=== PATIENT | male | born 1990 | race Caucasian/White ===

== ENCOUNTER 2018-08-06 10:25 | Inpatient (IN) | payer OTHER ==
[2018-08-06 10:53] VITALS: BMI 21.1
--- NOTE | 2018-08-06 11:55 | HP ---
COWS - Scale Resting Pulse: 0= [place] 80 or Below Sweatin= Chills/Flushing Restless Observation: 3= Extraneous Movement Pupil Size: 2= Moderately Dilated Bone or Joint Aches: 2= Severe Diffuse Aches Runny Nose/ Eye Tearin= Runny Nose/Eyes GI Upset > 30mins: 3= Vomiting/Diarrhea Tremor Observation: 2= Slight Tremor Visible Yawning Observation: 2= >3x During Session Anxiety or Irritability: 2=Irritable/Anxious Goose Flesh Skin: 0=Smooth Skin COWS Score: 19 CIWA Score - Admission Criteria OASAS Guidelines: Admission for Medically Managed Detox: Requires at least one of the followin. CIWA greater than 12 2. Seizures within the past 24 hours 3. Delirium tremens within the past 24 hours 4. Hallucinations within the past 24 hours 5. Acute intervention needed for co occurring medical disorder 6. Acute intervention needed for co occurring psychiatric disorder 7. Severe withdrawal that cannot be handled at a lower level of care (continued vomiting, continued diarrhea, abnormal vital signs) requiring intravenous medication and/or fluids 8. Admission ROS S - HPI Chief Complaint: i need help to stop using heroin,cocaine Allergies/Adverse Reactions: Allergies Allergy/AdvReac Type Severity Reaction Status Date / Time No Known Allergies Allergy Verified 08/06/18 11:51 History of Present Illness: this 27 years old male with heroin and cocaine depenence,seeking detox, withdrawal symptom,last detox 2018 [facility] this is the first detox admission asthma on albuterol inhaler and nebulizer nicotine dependence 6 cigarette weight loss longest sobriety 2 years relocate after detox Exam Limitations: No Limitations - Ebola screening Have you traveled outside of the country in the last 21 days: No (N) Have you had contact with anyone from an Ebola affected area: No Have you been sick,other than usual withdrawal symptoms: No Do you have a fever: No - Review of Systems Constitutional: Chills, Loss of Appetite, Malaise, Night Sweats, Changes in sleep, Weakness, Unintentional Wgt. Loss EENT: reports: Tearing, Nose Congestion Respiratory: reports: No Symptoms reported, Other (asthma) Cardiac: reports: No Symptoms Reported GI: reports: Diarrhea, Nausea, Vomiting, Abdominal cramping : reports: No Symptoms Reported Musculoskeletal: reports: Back Pain, Joint Pain, Muscle Pain, Joint Stiffness Neuro: reports: Headache, Tremors Hematology: reports: No Symptoms Reported Psychiatric: reports: No Sypmtoms Reported, Judgement Intact, Mood/Affect Appropiate, Orientated x3, other Other Systems: Reviewed and Negative Patient History - Patient Medical History Hx Anemia: No Hx Asthma: Yes (on albutrol inhaler and nebulizer) Hx Chronic Obstructive Pulmonary Disease (COPD): No Hx Cancer: No Hx Cardiac Disorders: No Hx Congestive Heart Failure: No Hx Hypertension: No Hx Hypercholesterolemia: No Hx Pacemaker: No HX Cerebrovascular Accident: No Hx Seizures: No Hx Dementia: No Hx Diabetes: No Hx Gastrointestinal Disorders: No Hx Liver Disease: No Hx Genitourinary Disorders: No Hx Sexually Transmitted Disorders: No Hx Renal Disease (ESRD): No Hx Thyroid Disease: No Hx Human Immunodeficiency Virus (HIV): No (last 06/02 negative) Hx Hepatitis C: No Hx Depression: No Hx Suicide Attempt: No Hx Bipolar Disorder: No Hx Schizophrenia: No Other Medical History: no suicidal,no homicidal - Patient Surgical History Past Surgical History: No - PPD History Previous Implant?: Yes Documented Results: Negative w/o proof Implanted On Prior [facility] Admission?: No PPD to be Administered?: Yes - Smoking Cessation Smoking history: Current every day smoker Have you smoked in the past 12 months: Yes Aproximately how many cigarettes per day: 0 Hx Chewing Tobacco Use: No Initiated information on smoking cessation: Yes 'Breaking Loose' booklet given: 08/06/18 - Substance & Tx. History Hx Alcohol Use: No Hx Substance Use: Yes Substance Use Type: Cocaine, Heroin Hx Substance Use Treatment: No - Substances Abused Heroin Route: Injection Frequency: Daily Amount used: 30 BAGS Age of first use: 22 Date of Last Use: 08/05/18 Cocaine Route: Injection Frequency: 1-2 times per week Amount used: $20 Age of first use: 22 Date of Last Use: 08/04/18 Family Disease History - Family Disease History Family History: Denies Admission Physical Exam S - Vital Signs Vital Signs: Vital Signs - 24 hr 08/06/18 10:52 Temperature 98.2 F Pulse Rate 80 Respiratory 18 Rate Blood Pressure 110/75 - Physical General Appearance: Yes: Moderate Distress, Tremorous, Irritable, Sweating, Anxious HEENTM: Yes: Normal ENT Inspection, MARY, Pharynx Normal Respiratory: Yes: No Respiratory Distress, Wheezing Neck: Yes: Within Normal Limits, Supple, Trachea in good position Breast: Yes: Within Normal Limits Cardiology: Yes: Within Normal Limits, Regular Rhythm, Regular Rate, S1, S2 Abdominal: Yes: Within Normal Limits, Normal Bowel Sounds, Non Tender, Flat, Soft Genitourinary: Yes: Within Normal Limits Back: Yes: Muscle Spasm Musculoskeletal: Yes: Back pain, Joint Stiffness, Muscle Pain Extremities: Yes: Normal Range of Motion, Tremors Neurological: Yes: sorter packer II-XII NML intact, Fully Oriented, Alert, Motor Strength 5/5 Integumentary: Yes: Dry, Track Desai Lymphatic: Yes: Within Normal Limits - Diagnostic (1) Opioid dependence with withdrawal Current Visit: Yes Status: Acute (2) Cocaine dependence Current Visit: Yes Status: Acute (3) Nicotine dependence Current Visit: Yes Status: Acute (4) Asthma Current Visit: Yes Status: Acute (5) Weight loss Current Visit: Yes Status: Acute Cleared for Admission [facility] - Detox or Rehab [facility] Level of Care: Medically Managed Detox Regimen/Protocol: Methadone [facility] Breath Alcohol Content Breath Alcohol Content: 0 Urine Drug Screen - Results Drug Screen Negative: No Urine Drug Screen Results: MUMTAZ-Cocaine, OPI-Opiates, FEN-Fentanyl Inpatient Rehab Admission - Rehab Decision to Admit Inpatient rehab admission?: No
[2018-08-06] MEDS ORDERED: BISMUTH SUBSALICYLATE 262 MG/15 ML BTL PO PRN (12:07)
[2018-08-06] MEDS ORDERED: hydrOXYzine PAMOATE 25 MG CAPSULE (FP) PO PRN (12:07)
[2018-08-06] MEDS ORDERED: MENTHOL/PHENOL 1 EACH UD MM PRN (12:07)
[2018-08-06] MEDS ORDERED: MAG HYDROX/AL HYDROX/SIMETH 30 ML UNIT-DOSE CUP PO PRN (12:07)
[2018-08-06] MEDS ORDERED: cloNIDine HCL 0.1 MG TABLET PO PRN (12:07)
[2018-08-06] MEDS ORDERED: MAGNESIUM CITRATE 300 ML BOTTLE PO PRN (12:07)
[2018-08-06] MEDS ORDERED: ACETAMINOPHEN 325 MG TABLET (FP) PO PRN ×2 (12:07)
[2018-08-06] MEDS ORDERED: IBUPROFEN 400 MG TABLET (FP) PO PRN (12:07)
[2018-08-06] MEDS ORDERED: MAGNESIUM HYDROX 2400MG/30ML ORAL SUSPENSION 30 ML CUP PO PRN (12:07)
[2018-08-06] MEDS ORDERED: METHADONE HCL 10 MG TABLET (FOR DETOX USE ONLY) PO ONE ×2 (12:20→23:00)
[2018-08-06] MEDS: METHADONE HCL 10 MG TABLET (FOR DETOX USE ONLY) PO ONE (13:03)
[2018-08-06] MEDS: diazePAM 5 MG TABLET PO PRN ×2 (13:03→19:53)
[2018-08-06] MEDS ORDERED: ALBUTEROL SO4 0.083% IH SOL 2.5 MG/3 ML VIAL.NEB. NEB ONE (17:10)
[2018-08-06] MEDS: ALBUTEROL SO4 0.083% IH SOL 2.5 MG/3 ML VIAL.NEB. NEB PRN (17:28)
[2018-08-06] MEDS: NICOTINE POLACRILEX 2 MG GUM BUC PRN (17:30)
[2018-08-06] MEDS: THIAMINE HCL 100 MG TABLET (FP) PO SCH (22:12)
[2018-08-06] MEDS: MELATONIN 5 MG TABLETS PO PRN (22:13)
[2018-08-07] MEDS: ALBUTEROL SO4 0.083% IH SOL 2.5 MG/3 ML VIAL.NEB. NEB PRN (02:43)
[2018-08-07 05:15] LABS: URINE APPEARANCE CLEAR; URINE BILIRUBIN NEGATIVE (NEGATIVE); URINE COLOR YELLOW; URINE GLUCOSE (UA) NEGATIVE (NEGATIVE); URINE KETONE NEGATIVE (NEGATIVE); URINE LEUK ESTERASE NEGATIVE (NEGATIVE); URINE NITRITE NEGATIVE (NEGATIVE); URINE PROTEIN NEGATIVE (NEGATIVE); URINE UROBILINOGEN 0.2 mg/dL (0.2-1.0)
--- NOTE | 2018-08-07 09:30 | EKG ---
Test Reason : Blood Pressure : / mmHG Vent. Rate : 069 BPM Atrial Rate : 069 BPM P-R Int : 126 ms QRS Dur : 092 ms QT Int : 394 ms P-R-T Axes : 059 070 054 degrees QTc Int : 422 ms NORMAL SINUS RHYTHM NORMAL ECG NO PREVIOUS ECGS AVAILABLE Confirmed by MYLENE LORA MD ([id number]) on 08/07/2018 9:29:38 AM Referred By: Confirmed By:MYLENE LORA MD
[2018-08-07] MEDS ORDERED: METHADONE HCL 10 MG TABLET (FOR DETOX USE ONLY) PO ONE (10:00)
[2018-08-07] MEDS: PRENATAL VITAMINS W/ FOLIC ACID TABLET (FP) PO SCH (10:15)
[2018-08-07] MEDS: diazePAM 5 MG TABLET PO PRN ×3 (10:17→22:27)
[2018-08-07] MEDS: METHOCARBAMOL 500 MG TABLET PO PRN (10:17)
[2018-08-07] MEDS: NICOTINE POLACRILEX 2 MG GUM BUC PRN ×3 (10:19→22:30)
--- NOTE | 2018-08-07 11:51 | PN ---
S COWS - Scale Resting Pulse: 0= [place] 80 or Below Sweatin= Chills/Flushing Restless Observation: 1= Difficult to Sit Still Pupil Size: 1= Pupils >than Normal Bone or Joint Aches: 1= Mild Discomfort Runny Nose/ Eye Tearin= Nasal Congestion GI Upset > 30mins: 1= Stomach Cramp Tremor Observation of Outstretched Hands: 2= Slight Tremor Visible Yawning Observation: 1= 1-2x During Session Anxiety or Irritability: 2=Irritable/Anxious Goose Flesh Skin: 3=Piloerection COWS Score: 14 BHS Progress Note (SOAP) Subjective: muscle cramping feeling better today mild tremor Objective: 08/07/18 11:50 Vital Signs Temperature 98.4 F 08/07/18 09:32 Pulse Rate 77 08/07/18 09:32 Respiratory Rate 18 08/07/18 09:32 Blood Pressure 126/78 08/07/18 09:32 O2 Sat by Pulse Oximetry (%) Laboratory Last Values Urine Color Yellow 08/07/18 00:05 Urine Appearance Clear 08/07/18 00:05 Urine pH 7.0 (5.0-8.0) 08/07/18 00:05 Ur Specific [place] 1.015 (1.010-1.035) 08/07/18 00:05 Urine Protein Negative (NEGATIVE) 08/07/18 00:05 Urine Glucose (UA) Negative (NEGATIVE) 08/07/18 00:05 Urine Ketones Negative (NEGATIVE) 08/07/18 00:05 Urine Blood Negative (NEGATIVE) 08/07/18 00:05 Urine Nitrite Negative (NEGATIVE) 08/07/18 00:05 Urine Bilirubin Negative (NEGATIVE) 08/07/18 00:05 Urine Urobilinogen 0.2 mg/dL (0.2-1.0) 08/07/18 00:05 Ur Leukocyte Esterase Negative (NEGATIVE) 08/07/18 00:05 lab pending 08/07/18 11:51 Assessment: 08/07/18 11:51 withdrawal sx Plan: continue detox
[2018-08-07 12:20] LABS: HEMATOCRIT 44.6 % (35.4-49); HEMOGLOBIN 15.3 GM/dL (11.7-16.9); MCH 31.2 pg (25.7-33.7); MCHC 34.4 g/dl (32.0-35.9); MEAN CELL VOLUME 90.9 fl (80-96); MEAN PLT VOLUME 8.3 fl (7.5-11.1); PLATELET COUNT 306 K/MM3 (134-434); RDW 13.6 % (11.9-15.9); WHITE BLOOD COUNT 7.5 K/mm3 (4.0-10.0)
[2018-08-07 12:29] LABS: SICKLE CELL SCREEN NEGATIVE (NEGATIVE)
[2018-08-07 12:34] LABS: ALBUMIN 4.1 g/dl (3.4-5.0); ALK PHOS 81 U/L (45-117); ANION GAP 9 MMOL/L (8-16); BILIRUBIN,TOTAL 0.3 mg/dL (0.2-1); BLOOD UREA NITROGEN 7 mg/dL (7-18); CALCIUM 9.5 mg/dL (8.5-10.1); CHLORIDE 101 mmol/L (98-107); CO2 28 mmol/L (21-32); CREATININE 0.9 mg/dL (0.55-1.3); GLUCOSE,RANDOM 84 mg/dL (74-106); POTASSIUM 3.9 mmol/L (3.5-5.1); SGOT/AST 25 U/L (15-37); SGPT/ALT 29 U/L (13-61); SODIUM 137 mmol/L (136-145); TOT PROT 7.6 g/dl (6.4-8.2)
[2018-08-07] MEDS: THIAMINE HCL 100 MG TABLET (FP) PO SCH (22:25)
[2018-08-07] MEDS: MELATONIN 5 MG TABLETS PO PRN (22:27)
[2018-08-08] MEDS: ALBUTEROL SO4 0.083% IH SOL 2.5 MG/3 ML VIAL.NEB. NEB PRN (02:09)
[2018-08-08] MEDS: METHOCARBAMOL 500 MG TABLET PO PRN ×2 (02:19→22:47)
[2018-08-08] MEDS ORDERED: METHADONE HCL 10 MG TABLET (FOR DETOX USE ONLY) PO ONE (10:00)
[2018-08-08] MEDS: PRENATAL VITAMINS W/ FOLIC ACID TABLET (FP) PO SCH (10:09)
[2018-08-08] MEDS: diazePAM 5 MG TABLET PO PRN (10:11)
[2018-08-08] MEDS: NICOTINE POLACRILEX 2 MG GUM BUC PRN ×3 (10:12→22:48)
[2018-08-08] MEDS ORDERED: cloNIDine HCL 0.1 MG TABLET PO PRN (12:29)
--- NOTE | 2018-08-08 12:29 | PN ---
BHS COWS - Scale Resting Pulse: 1= [place] 81-100 Sweatin= Chills/Flushing Restless Observation: 1= Difficult to Sit Still Pupil Size: 1= Pupils >than Normal Bone or Joint Aches: 1= Mild Discomfort Runny Nose/ Eye Tearin= Nasal Congestion GI Upset > 30mins: 1= Stomach Cramp Tremor Observation of Outstretched Hands: 1= Tremor [place], Not Seen Yawning Observation: 1= 1-2x During Session Anxiety or Irritability: 1=Feels Anxious/Irritable Goose Flesh Skin: 0=Smooth Skin COWS Score: 10 BHS Progress Note (SOAP) Subjective: pt states she has with drawal Sx- here for methadone detox today is day #3 O: Vital Signs - 24 hr 08/07/18 08/07/18 08/07/18 13:26 17:24 21:39 Temperature 97.9 F 98.1 F 97.3 F L Pulse Rate 93 H 76 77 Respiratory 18 17 17 Rate Blood Pressure 126/86 99/64 94/56 L 08/08/18 08/08/18 08/08/18 00:30 03:30 06:53 Temperature 96.8 F L Pulse Rate 60 Respiratory 18 18 18 Rate Blood Pressure 89/43 L 08/08/18 09:25 Temperature 97.2 F L Pulse Rate 78 Respiratory 18 Rate Blood Pressure 102/65 Laboratory Tests 08/07/18 08/07/18 08/07/18 00:05 06:00 06:00 WBC 7.5 RBC 4.90 Hgb 15.3 Hct 44.6 MCV 90.9 MCH 31.2 MCHC 34.4 RDW 13.6 Plt Count 306 MPV 8.3 Sickle Cell Screen Negative Sodium 137 Potassium 3.9 Chloride 101 Carbon Dioxide 28 Anion Gap 9 BUN 7 Creatinine 0.9 Creat Clearance w eGFR 101.22 Random Glucose 84 Calcium 9.5 Total Bilirubin 0.3 AST 25 ALT 29 Alkaline Phosphatase 81 Total Protein 7.6 Albumin 4.1 Urine Color Yellow Urine Appearance Clear Urine pH 7.0 Ur Specific [place] 1.015 Urine Protein Negative Urine Glucose (UA) Negative Urine Ketones Negative Urine Blood Negative Urine Nitrite Negative Urine Bilirubin Negative Urine Urobilinogen 0.2 Ur Leukocyte Esterase Negative RPR Titer 08/07/18 06:00 WBC RBC Hgb Hct MCV MCH MCHC RDW Plt Count MPV Sickle Cell Screen Sodium Potassium Chloride Carbon Dioxide Anion Gap BUN Creatinine Creat Clearance w eGFR Random Glucose Calcium Total Bilirubin AST ALT Alkaline Phosphatase Total Protein Albumin Urine Color Urine Appearance Urine pH Ur Specific [place] Urine Protein Urine Glucose (UA) Urine Ketones Urine Blood Urine Nitrite Urine Bilirubin Urine Urobilinogen Ur Leukocyte Esterase RPR Titer Nonreactive a/p: methadone based heroin detox protocol clonidine/vitaril prn
[2018-08-08] MEDS: MELATONIN 5 MG TABLETS PO PRN (22:45)
[2018-08-08] MEDS: THIAMINE HCL 100 MG TABLET (FP) PO SCH (22:45)
--- NOTE | 2018-08-09 09:12 | DS ---
[facility] Detox Discharge Summary Admission Date: 08/06/18 Discharge Date: 08/09/18 - History Present History: Opioid Dependence Additional Comments: 27 years old male admitted on 08/06/18 for opiate withdrawal stabilization feeling better today preferring to go to [place] with his family for support alert no acute distress denies suicidal ideation will follow up aftercare in [place] Pertinent Past History: bulk picker narcan kit from pharmacy bring in medication list and lab report to aftercare appointment - Physical Exam Results Vital Signs: Vital Signs Temperature 97.4 F L 08/09/18 06:42 Pulse Rate 69 08/09/18 06:42 Respiratory Rate 18 08/09/18 06:42 Blood Pressure 96/56 L 08/09/18 06:42 O2 Sat by Pulse Oximetry (%) Pertinent Admission Physical Exam Findings: opiate withdrawal sx Laboratory Last Values WBC 7.5 K/mm3 (4.0-10.0) 08/07/18 06:00 RBC 4.90 M/mm3 (4.00-5.60) 08/07/18 06:00 Hgb 15.3 GM/dL (11.7-16.9) 08/07/18 06:00 Hct 44.6 % (35.4-49) 08/07/18 06:00 MCV 90.9 fl (80-96) 08/07/18 06:00 MCH 31.2 pg (25.7-33.7) 08/07/18 06:00 MCHC 34.4 g/dl (32.0-35.9) 08/07/18 06:00 RDW 13.6 % (11.9-15.9) 08/07/18 06:00 Plt Count 306 K/MM3 (134-434) 08/07/18 06:00 MPV 8.3 fl (7.5-11.1) 08/07/18 06:00 Sickle Cell Screen Negative (NEGATIVE) 08/07/18 06:00 Sodium 137 mmol/L (136-145) 08/07/18 06:00 Potassium 3.9 mmol/L (3.5-5.1) 08/07/18 06:00 Chloride 101 mmol/L (98-107) 08/07/18 06:00 Carbon Dioxide 28 mmol/L (21-32) 08/07/18 06:00 Anion Gap 9 MMOL/L (8-16) 08/07/18 06:00 BUN 7 mg/dL (7-18) 08/07/18 06:00 Creatinine 0.9 mg/dL (0.55-1.3) 08/07/18 06:00 Creat Clearance w eGFR 101.22 (>60) 08/07/18 06:00 Random Glucose 84 mg/dL (74-106) 08/07/18 06:00 Calcium 9.5 mg/dL (8.5-10.1) 08/07/18 06:00 Total Bilirubin 0.3 mg/dL (0.2-1) 08/07/18 06:00 AST 25 U/L (15-37) 08/07/18 06:00 ALT 29 U/L (13-61) 08/07/18 06:00 Alkaline Phosphatase 81 U/L (45-117) 08/07/18 06:00 Total Protein 7.6 g/dl (6.4-8.2) 08/07/18 06:00 Albumin 4.1 g/dl (3.4-5.0) 08/07/18 06:00 Urine Color Yellow 08/07/18 00:05 Urine Appearance Clear 08/07/18 00:05 Urine pH 7.0 (5.0-8.0) 08/07/18 00:05 Ur Specific [place] 1.015 (1.010-1.035) 08/07/18 00:05 Urine Protein Negative (NEGATIVE) 08/07/18 00:05 Urine Glucose (UA) Negative (NEGATIVE) 08/07/18 00:05 Urine Ketones Negative (NEGATIVE) 08/07/18 00:05 Urine Blood Negative (NEGATIVE) 08/07/18 00:05 Urine Nitrite Negative (NEGATIVE) 08/07/18 00:05 Urine Bilirubin Negative (NEGATIVE) 08/07/18 00:05 Urine Urobilinogen 0.2 mg/dL (0.2-1.0) 08/07/18 00:05 Ur Leukocyte Esterase Negative (NEGATIVE) 08/07/18 00:05 RPR Titer Nonreactive (NONREACTIVE) 08/07/18 06:00 lab noted - Treatment Hospital Course: Detox Protocol Followed, Detoxed Safely, Responded well, Discharged Condition Good, Rehab Referral Accepted Patient has Accepted a Rehab Referral to: [facility] group - Medication Discharge Medications: Ambulatory Orders Naloxone HCl [Narcan] 4 mg NS ASDIR PRN #1 spray 08/09/18 - Diagnosis (1) Asthma Current Visit: Yes Status: Chronic Qualifiers: Asthma severity: mild Asthma persistence: intermittent Asthma complication type: with status asthmaticus Qualified Code(s): J45.22 - Mild intermittent asthma with status asthmaticus (2) Nicotine dependence Current Visit: Yes Status: Acute Qualifiers: Nicotine product type: cigarettes Substance use status: in withdrawal Qualified Code(s): F17.213 - Nicotine dependence, cigarettes, with withdrawal (3) Opioid dependence with withdrawal Current Visit: Yes Status: Acute (4) Weight loss Current Visit: Yes Status: Acute - AMA Did Patient Leave Against Medical Advice: No
[2018-08-09] MEDS: METHADONE HCL 10 MG TABLET (FOR DETOX USE ONLY) PO ONE (10:01)
[2018-08-09] MEDS: PRENATAL VITAMINS W/ FOLIC ACID TABLET (FP) PO SCH (10:01)
[2018-08-09 10:11] VITALS: BP 107/65; PULSE 81; TEMP 98.4
[2018-08-10] MEDS ORDERED: METHADONE HCL 5 MG TABLET (FOR DETOX USE ONLY) PO ONE (06:00)
== END 2018-08-09 10:23 | disposition home or self-care (01) | DRG 773 ==
LOC: YASAS 10:25 → Y3N 12:16
PROVIDERS: ADMIT Surgery; ATTEND Surgery
PROC: HZ2ZZZZ Detoxification Services for Substance Abuse Treatment (ICD-10-PCS; principal; 2018-08-09)
DX: F11.23 Opioid dependence with withdrawal (principal); F14.20 Cocaine dependence, uncomplicated; F17.213 Nicotine dependence, cigarettes, with withdrawal; J45.22 Mild intermittent asthma with status asthmaticus; R63.4 Abnormal weight loss
CPT/HCPCS: 36415; 80053; 81003; 85027; 85660; 86593; 93005; 93010; 94640; J0735

== ENCOUNTER 2018-12-02 11:23 | Inpatient (IN) | payer OTHER ==
--- NOTE | 2018-12-02 13:40 | HP ---
COWS - Scale Resting Pulse: 1= [place] 81-100 Sweatin=Flushed/Facial Moisture Restless Observation: 1= Difficult to Sit Still Pupil Size: 1= Pupils >than Normal Bone or Joint Aches: 1= Mild Discomfort Runny Nose/ Eye Tearin= Nasal Congestion GI Upset > 30mins: 2= Nausea/Diarrhea Tremor Observation: 2= Slight Tremor Visible Yawning Observation: 0= None Anxiety or Irritability: 2=Irritable/Anxious Goose Flesh Skin: 0=Smooth Skin COWS Score: 13 CIWA Score - Admission Criteria OASAS Guidelines: Admission for Medically Managed Detox: Requires at least one of the followin. CIWA greater than 12 2. Seizures within the past 24 hours 3. Delirium tremens within the past 24 hours 4. Hallucinations within the past 24 hours 5. Acute intervention needed for co occurring medical disorder 6. Acute intervention needed for co occurring psychiatric disorder 7. Severe withdrawal that cannot be handled at a lower level of care (continued vomiting, continued diarrhea, abnormal vital signs) requiring intravenous medication and/or fluids 8. Admission ROS [facility] Chief Complaint: IM TIRED Allergies/Adverse Reactions: Allergies Allergy/AdvReac Type Severity Reaction Status Date / Time No Known Allergies Allergy Verified 12/02/18 12:06 History of Present Illness: BEGAN USING OPIATES AGE 20 PREVIOUSLY NO SUBSTANCES RECRATIONALLY BEGAN USING ORAL OPIATES 6-7 MOS BECAME DEPENDENT AND BEGAN USING HEROIN USING IV NO ABCESSES + MISS COCAINE OCASSIONAL - Ebola screening Have you traveled outside of the country in the last 21 days: No (N) Have you had contact with anyone from an Ebola affected area: No Do you have a fever: No - Review of Systems Constitutional: Loss of Appetite, Changes in sleep, Unintentional Wgt. Loss EENT: reports: No Symptoms Reported Respiratory: reports: Shortness of Breath Cardiac: reports: No Symptoms Reported GI: reports: Nausea, Vomiting, Indigestion, Abdominal cramping : reports: No Symptoms Reported Musculoskeletal: reports: No Symptoms Reported Integumentary: reports: No Symptoms Reported Neuro: reports: No Symptoms reported Endocrine: reports: No Symptoms Reported Hematology: reports: No Symptoms Reported Psychiatric: reports: Anxious Patient History - Patient Medical History Hx Anemia: No Hx Asthma: Yes (on albutrol inhaler and nebulizer) Hx Chronic Obstructive Pulmonary Disease (COPD): No Hx Cancer: No Hx Cardiac Disorders: No Hx Congestive Heart Failure: No Hx Hypertension: No Hx Hypercholesterolemia: No Hx Pacemaker: No HX Cerebrovascular Accident: No Hx Seizures: No Hx Dementia: No Hx Diabetes: No Hx Gastrointestinal Disorders: No Hx Liver Disease: No Hx Genitourinary Disorders: No Hx Sexually Transmitted Disorders: No Hx Renal Disease (ESRD): No Hx Thyroid Disease: No Hx Human Immunodeficiency Virus (HIV): No (last 06/02 negative) Hx Hepatitis C: No Hx Depression: No Hx Suicide Attempt: No Hx Bipolar Disorder: No Hx Schizophrenia: No - Patient Surgical History Past Surgical History: No - PPD History Date: 08/08/18 - Smoking Cessation Smoking history: Current every day smoker Have you smoked in the past 12 months: Yes Aproximately how many cigarettes per day: 6 Hx Chewing Tobacco Use: No Initiated information on smoking cessation: Yes 'Breaking Loose' booklet given: 12/02/18 - Substances abused Heroin Substance route: Injection Frequency: Daily Amount used: 7bags daily Age of first use: 20 Date of last use: 12/02/18 Family Disease History - Family Disease History Family Disease History: Other: Father (etoh ) Admission Physical Exam BHS - Vital Signs Vital Signs: Vital Signs - 24 hr 12/02/18 12/02/18 12:07 13:04 Temperature 99.4 F 99.4 F Pulse Rate 88 88 Respiratory 18 18 Rate Blood Pressure 131/88 131/88 - Physical General Appearance: Yes: Mild Distress, Sweating, Anxious HEENTM: Yes: EOMI, Normocephalic, MARY Respiratory: Yes: Chest Non-Tender, Lungs Clear Neck: Yes: No masses,lesions,Nodules Breast: Yes: Breast Exam Deferred Cardiology: Yes: Within Normal Limits, Regular Rate, S1, S2 Abdominal: Yes: Normal Bowel Sounds, Non Tender Back: Yes: Within Normal Limits, Normal Inspection Musculoskeletal: Yes: Within Normal Limits, full range of Motion Extremities: Yes: Within Normal Limits Neurological: Yes: Within Normal Limits, vendor representatives II-XII NML intact, Fully Oriented, Alert, Motor Strength 5/5, Normal Mood/Affect Integumentary: Yes: Track Desai (bl ac) - Diagnostic (1) Nicotine dependence Current Visit: Yes Status: Acute Qualifiers: Nicotine product type: cigarettes Substance use status: in withdrawal Qualified Code(s): F17.213 - Nicotine dependence, cigarettes, with withdrawal (2) Opioid dependence with withdrawal Current Visit: Yes Status: Acute (3) Weight loss Current Visit: Yes Status: Acute (4) Asthma Current Visit: No Status: Chronic Qualifiers: Asthma severity: mild Asthma persistence: intermittent Asthma complication type: uncomplicated Qualified Code(s): J45.20 - Mild intermittent asthma, uncomplicated Breathalyzer - Breathalyzer Breathalyzer: 0 Urine Drug Screen - Test Device Lot number: [id number] Expiration date: 09/11/20 - Control Is test valid?: Yes - Results Drug screen NEGATIVE: No Urine drug screen results: THC-Marijuana, MUMTAZ-Cocaine, FEN-Fentanyl, MOP-Opiates , OXY-Oxycodone Inpatient Rehab Admission - Rehab Decision to Admit Inpatient rehab admission?: No
[2018-12-02] MEDS ORDERED: METHOCARBAMOL 500 MG TABLET PO PRN (13:46)
[2018-12-02] MEDS ORDERED: IBUPROFEN 400 MG TABLET (FP) PO PRN (13:46)
[2018-12-02] MEDS ORDERED: MAGNESIUM HYDROX 2400MG/30ML ORAL SUSPENSION 30 ML CUP PO PRN (13:46)
[2018-12-02] MEDS ORDERED: BISMUTH SUBSALICYLATE 524 MG/30 ML UD PO PRN (13:46)
[2018-12-02] MEDS ORDERED: ACETAMINOPHEN 325 MG TABLET (FP) PO PRN ×2 (13:46)
[2018-12-02] MEDS ORDERED: MENTHOL/PHENOL 1 EACH UD MM PRN (13:46)
[2018-12-02] MEDS ORDERED: MAGNESIUM CITRATE 300 ML BOTTLE PO PRN (13:46)
[2018-12-02] MEDS ORDERED: METHADONE HCL 10 MG TABLET (FOR DETOX USE ONLY) PO ONE (13:46)
[2018-12-02] MEDS ORDERED: ALBUTEROL SO4 8 GM HFA INHALER IH PRN (13:49)
[2018-12-02] MEDS: NICOTINE POLACRILEX 2 MG GUM BUC PRN ×2 (15:07→17:42)
[2018-12-02] MEDS: NICOTINE 14 MG/24 HOURS TOPICAL PATCH TD SCH (15:07)
[2018-12-02] MEDS: hydrOXYzine PAMOATE 25 MG CAPSULE (FP) PO PRN (17:45)
[2018-12-02] MEDS: cloNIDine HCL 0.1 MG TABLET PO PRN (22:07)
[2018-12-02] MEDS: THIAMINE HCL 100 MG TABLET (FP) PO SCH (22:07)
[2018-12-02] MEDS: MELATONIN 5 MG TABLETS PO PRN (22:08)
[2018-12-03] MEDS ORDERED: METHADONE (DETOX) 20 MG, METHADONE (DETOX) 5 MG PO ONE (10:00)
[2018-12-03] MEDS ORDERED: METHADONE HCL 10 MG TABLET (FOR DETOX USE ONLY) ONE (10:07)
[2018-12-03] MEDS ORDERED: METHADONE HCL 5 MG TABLET (FOR DETOX USE ONLY) ONE (10:07)
[2018-12-03] MEDS: NICOTINE POLACRILEX 2 MG GUM BUC PRN ×3 (10:29→18:22)
[2018-12-03] MEDS: PRENATAL VITAMINS W/ FOLIC ACID TABLET (FP) PO SCH (10:29)
[2018-12-03] MEDS: NICOTINE 14 MG/24 HOURS TOPICAL PATCH TD SCH (10:29)
[2018-12-03] MEDS: hydrOXYzine PAMOATE 25 MG CAPSULE (FP) PO PRN (10:30)
--- NOTE | 2018-12-03 10:47 | PN ---
BHS COWS - Scale Resting Pulse: 1= [place] 81-100 Sweatin= Chills/Flushing Restless Observation: 0= Sits Still Pupil Size: 1= Pupils >than Normal Bone or Joint Aches: 1= Mild Discomfort Runny Nose/ Eye Tearin= None GI Upset > 30mins: 1= Stomach Cramp Tremor Observation of Outstretched Hands: 2= Slight Tremor Visible Yawning Observation: 0= None Anxiety or Irritability: 2=Irritable/Anxious Goose Flesh Skin: 3=Piloerection COWS Score: 12 BHS Progress Note (SOAP) Subjective: sweat anxiety body aches 28 years old male admitted on 12/02/18 for acute opiate withdrawal sx management doing well with methadone detox regimen resting on bed feeling tired tolerate food and fluid well last [place]' admission 07/2018 discuss medication assisted treatment program Objective: 12/03/18 10:48 Vital Signs Temperature 97.4 F L 12/03/18 10:05 Pulse Rate 82 12/03/18 10:05 Respiratory Rate 18 12/03/18 10:05 Blood Pressure 110/73 12/03/18 10:05 O2 Sat by Pulse Oximetry (%) 12/03/18 10:48 lab pending Assessment: 12/03/18 10:48 opiate withdrawal sx Plan: continue opiate detox
[2018-12-03] MEDS: MAG HYDROX/AL HYDROX/SIMETH 30 ML UNIT-DOSE CUP PO PRN (11:16)
[2018-12-03 12:13] LABS: HEMATOCRIT 44.3 % (35.4-49); HEMOGLOBIN 14.9 GM/dL (11.7-16.9); MCHC 33.6 g/dl (32.0-35.9); MEAN CELL VOLUME 92.2 fl (80-96); MEAN PLT VOLUME 7.7 fl (7.5-11.1); PLATELET COUNT 366 K/MM3 (134-434); RBC 4.81 M/mm3 (4.00-5.60); RDW 14.2 % (11.9-15.9); WHITE BLOOD COUNT 7.7 K/mm3 (4.0-10.0)
[2018-12-03 12:26] LABS: ALBUMIN 3.5 g/dl (3.4-5.0); BILIRUBIN,TOTAL 0.3 mg/dL (0.2-1); BLOOD UREA NITROGEN 6.7 mg/dL (7-18); CALCIUM 9.5 mg/dL (8.5-10.1); CREATININE 0.8 mg/dL (0.55-1.3); POTASSIUM 5.2 mmol/L (3.5-5.1); TOT PROT 6.6 g/dl (6.4-8.2)
[2018-12-03] MEDS ORDERED: hydrOXYzine HCL 25 MG TABLET (FP) PO PRN (17:36)
[2018-12-03] MEDS: cloNIDine HCL 0.1 MG TABLET PO PRN (18:22)
[2018-12-03] MEDS: THIAMINE HCL 100 MG TABLET (FP) PO SCH (22:19)
[2018-12-03] MEDS: MELATONIN 5 MG TABLETS PO PRN (22:19)
[2018-12-04] MEDS: MAG HYDROX/AL HYDROX/SIMETH 30 ML UNIT-DOSE CUP PO PRN (08:48)
[2018-12-04] MEDS ORDERED: METHADONE HCL 10 MG TABLET (FOR DETOX USE ONLY) PO ONE (10:00)
[2018-12-04] MEDS: PRENATAL VITAMINS W/ FOLIC ACID TABLET (FP) PO SCH (10:13)
[2018-12-04] MEDS: NICOTINE 14 MG/24 HOURS TOPICAL PATCH TD SCH (10:13)
--- NOTE | 2018-12-04 11:20 | PN ---
BHS COWS - Scale Resting Pulse: 0= [place] 80 or Below Sweatin= Chills/Flushing Restless Observation: 0= Sits Still Pupil Size: 1= Pupils >than Normal Bone or Joint Aches: 1= Mild Discomfort Runny Nose/ Eye Tearin= Runny Nose/Eyes GI Upset > 30mins: 1= Stomach Cramp Tremor Observation of Outstretched Hands: 1= Tremor [place], Not Seen Yawning Observation: 1= 1-2x During Session Anxiety or Irritability: 1=Feels Anxious/Irritable Goose Flesh Skin: 0=Smooth Skin COWS Score: 9 BHS Progress Note (SOAP) Subjective: 28 years old male admmitted on 12/02/18 for acute opiate withdrawal sx management doing well with methadone detox regimen mild rhinorreha otherwise doing ok encourage the patient to increase oral fluid and talk about aftercare Objective: 12/04/18 11:20 Vital Signs Temperature 96.7 F L 12/04/18 09:29 Pulse Rate 63 12/04/18 09:29 Respiratory Rate 18 12/04/18 09:29 Blood Pressure 94/56 L 12/04/18 09:29 O2 Sat by Pulse Oximetry (%) Laboratory Last Values WBC 7.7 K/mm3 (4.0-10.0) 12/03/18 07:00 RBC 4.81 M/mm3 (4.00-5.60) 12/03/18 07:00 Hgb 14.9 GM/dL (11.7-16.9) 12/03/18 07:00 Hct 44.3 % (35.4-49) 12/03/18 07:00 MCV 92.2 fl (80-96) 12/03/18 07:00 MCH 31.0 pg (25.7-33.7) 12/03/18 07:00 MCHC 33.6 g/dl (32.0-35.9) 12/03/18 07:00 RDW 14.2 % (11.9-15.9) 12/03/18 07:00 Plt Count 366 K/MM3 (134-434) 12/03/18 07:00 MPV 7.7 fl (7.5-11.1) 12/03/18 07:00 Sodium 140 mmol/L (136-145) 12/03/18 07:00 Potassium 5.2 mmol/L (3.5-5.1) H 12/03/18 07:00 Chloride 104 mmol/L (98-107) 12/03/18 07:00 Carbon Dioxide 31 mmol/L (21-32) 12/03/18 07:00 Anion Gap 5 MMOL/L (8-16) L 12/03/18 07:00 BUN 6.7 mg/dL (7-18) L 12/03/18 07:00 Creatinine 0.8 mg/dL (0.55-1.3) 12/03/18 07:00 Est GFR (CKD-EPI)AfAm 140.90 12/03/18 07:00 Est GFR (CKD-EPI)NonAf 121.57 12/03/18 07:00 Random Glucose 84 mg/dL (74-106) 12/03/18 07:00 Calcium 9.5 mg/dL (8.5-10.1) 12/03/18 07:00 Total Bilirubin 0.3 mg/dL (0.2-1) 12/03/18 07:00 AST 61 U/L (15-37) H 12/03/18 07:00 ALT 111 U/L (13-61) H 12/03/18 07:00 Alkaline Phosphatase 92 U/L (45-117) 12/03/18 07:00 Total Protein 6.6 g/dl (6.4-8.2) 12/03/18 07:00 Albumin 3.5 g/dl (3.4-5.0) 12/03/18 07:00 RPR Titer Nonreactive (NONREACTIVE) 12/03/18 07:00 lab noted K+ elevation repeat K Assessment: 12/04/18 11:21 opiate withdrawal sx Plan: continue opiate detox
--- NOTE | 2018-12-04 12:05 | DS ---
[facility] Detox Discharge Summary Admission Date: 12/02/18 Discharge Date: 12/04/18 - History Present History: Opioid Dependence Additional Comments: 28 years old male admitted on 12/02/18 for acute opiate withdrawal sx management insists to leave the detox that he is going to stay with his sister in [place] where "I do not know anyone" patient believes that if he does not know anyone and no way for he to find opiate discuss the popularity of opiate misuse disorder local region and nation wide discuss medication assisted treatment program Pertinent Past History: patient is alert oriented x 3 steady gait speech clearly no shortness of breath no dizziness no chest pain denies nausea no diarrhea - Physical Exam Results Vital Signs: Vital Signs Temperature 96.7 F L 12/04/18 09:29 Pulse Rate 63 12/04/18 09:29 Respiratory Rate 18 12/04/18 09:29 Blood Pressure 94/56 L 12/04/18 09:29 O2 Sat by Pulse Oximetry (%) Pertinent Admission Physical Exam Findings: opiate withdrawal sx Laboratory Last Values WBC 7.7 K/mm3 (4.0-10.0) 12/03/18 07:00 RBC 4.81 M/mm3 (4.00-5.60) 12/03/18 07:00 Hgb 14.9 GM/dL (11.7-16.9) 12/03/18 07:00 Hct 44.3 % (35.4-49) 12/03/18 07:00 MCV 92.2 fl (80-96) 12/03/18 07:00 MCH 31.0 pg (25.7-33.7) 12/03/18 07:00 MCHC 33.6 g/dl (32.0-35.9) 12/03/18 07:00 RDW 14.2 % (11.9-15.9) 12/03/18 07:00 Plt Count 366 K/MM3 (134-434) 12/03/18 07:00 MPV 7.7 fl (7.5-11.1) 12/03/18 07:00 Sodium 140 mmol/L (136-145) 12/03/18 07:00 Potassium 5.2 mmol/L (3.5-5.1) H 12/03/18 07:00 Chloride 104 mmol/L (98-107) 12/03/18 07:00 Carbon Dioxide 31 mmol/L (21-32) 12/03/18 07:00 Anion Gap 5 MMOL/L (8-16) L 12/03/18 07:00 BUN 6.7 mg/dL (7-18) L 12/03/18 07:00 Creatinine 0.8 mg/dL (0.55-1.3) 12/03/18 07:00 Est GFR (CKD-EPI)AfAm 140.90 12/03/18 07:00 Est GFR (CKD-EPI)NonAf 121.57 12/03/18 07:00 Random Glucose 84 mg/dL (74-106) 12/03/18 07:00 Calcium 9.5 mg/dL (8.5-10.1) 12/03/18 07:00 Total Bilirubin 0.3 mg/dL (0.2-1) 12/03/18 07:00 AST 61 U/L (15-37) H 12/03/18 07:00 ALT 111 U/L (13-61) H 12/03/18 07:00 Alkaline Phosphatase 92 U/L (45-117) 12/03/18 07:00 Total Protein 6.6 g/dl (6.4-8.2) 12/03/18 07:00 Albumin 3.5 g/dl (3.4-5.0) 12/03/18 07:00 RPR Titer Nonreactive (NONREACTIVE) 12/03/18 07:00 lab noted patient agrees to bring in lab report to his health care provider in the community - Treatment Hospital Course: Detox Protocol Followed, Responded well Patient has Accepted a Rehab Referral to: community support approach - Medication Discharge Medications: Ambulatory Orders NK [No Known Home Medication] 12/02/18 - Diagnosis (1) Nicotine dependence Current Visit: Yes Status: Acute Qualifiers: Nicotine product type: cigarettes Substance use status: in withdrawal Qualified Code(s): F17.213 - Nicotine dependence, cigarettes, with withdrawal (2) Opioid dependence with withdrawal Current Visit: Yes Status: Acute (3) Weight loss Current Visit: Yes Status: Acute (4) Asthma Current Visit: Yes Status: Chronic Qualifiers: Asthma severity: mild Asthma persistence: intermittent Asthma complication type: uncomplicated Qualified Code(s): J45.20 - Mild intermittent asthma, uncomplicated - AMA Did Patient Leave Against Medical Advice: Yes
[2018-12-04 13:56] VITALS: BP 107/69; PULSE 66; TEMP 98.5
[2018-12-05] MEDS ORDERED: METHADONE (DETOX) 10 MG, METHADONE (DETOX) 5 MG PO ONE (10:00)
[2018-12-06] MEDS ORDERED: METHADONE HCL 10 MG TABLET (FOR DETOX USE ONLY) PO ONE (10:00)
[2018-12-07] MEDS ORDERED: METHADONE HCL 5 MG TABLET (FOR DETOX USE ONLY) PO ONE (06:00)
== END 2018-12-04 12:30 | disposition left against medical advice (07) | DRG 770 ==
LOC: YASAS 11:23 → Y3N 14:12
PROVIDERS: ADMIT Surgery; ATTEND Surgery
PROC: HZ2ZZZZ Detoxification Services for Substance Abuse Treatment (ICD-10-PCS; principal; 2018-12-02)
DX: F11.23 Opioid dependence with withdrawal (principal); F17.213 Nicotine dependence, cigarettes, with withdrawal; R63.4 Abnormal weight loss; J45.20 Mild intermittent asthma, uncomplicated
CPT/HCPCS: 36415; 80053; 85027; 86593; J0735

== ENCOUNTER 2019-03-19 19:19 | Inpatient (IN) | payer OTHER ==
[2019-03-20 00:19] VITALS: BMI 20.3
--- NOTE | 2019-03-20 02:37 | HP ---
CIWA Score - Admission Criteria [facility] Guidelines: Admission for Medically Managed Detox: Requires at least one of the followin. CIWA greater than 12 2. Seizures within the past 24 hours 3. Delirium tremens within the past 24 hours 4. Hallucinations within the past 24 hours 5. Acute intervention needed for co occurring medical disorder 6. Acute intervention needed for co occurring psychiatric disorder 7. Severe withdrawal that cannot be handled at a lower level of care (continued vomiting, continued diarrhea, abnormal vital signs) requiring intravenous medication and/or fluids 8. Admitting History and Physical - Smoking History Smoking history: Current every day smoker Have you smoked in the past 12 months: Yes Aproximately how many cigarettes per day: 6 - Alcohol/Substance Use Hx Alcohol Use: No Admission ROS S - HPI Chief Complaint: Heroin and Xanax withdrawal symptoms Allergies/Adverse Reactions: Allergies Allergy/AdvReac Type Severity Reaction Status Date / Time No Known Allergies Allergy Verified 03/20/19 00:06 History of Present Illness: 28 years old male with6 years of heroin dependence and 3 years of Benzodiazepine dependence is seeking admission to detox. Patient reports 2 years of sobriety and denies suicidal ideation at this time. He has medical history if asthma Confidential Drug Utilization Report Search Terms: morris catherine, 1990 Search Date: 03/20/2019 02:31:51 AM The Drug Utilization Report below displays all of the controlled substance prescriptions, if any, that your patient has filled in the last twelve months. The information displayed on this report is compiled from pharmacy submissions to the Department, and accurately reflects the information as submitted by the pharmacies. There are no results for the search terms that you entered. - Ebola screening Have you traveled outside of the country in the last 21 days: No (N) Have you had contact with anyone from an Ebola affected area: No Do you have a fever: No Patient History - Patient Medical History Hx Anemia: No Hx Asthma: Yes (on albutrol inhaler and nebulizer) Hx Chronic Obstructive Pulmonary Disease (COPD): No Hx Cancer: No Hx Cardiac Disorders: No Hx Congestive Heart Failure: No Hx Hypertension: No Hx Hypercholesterolemia: No Hx Pacemaker: No HX Cerebrovascular Accident: No Hx Seizures: No Hx Dementia: No Hx Diabetes: No Hx Gastrointestinal Disorders: No Hx Liver Disease: No Hx Genitourinary Disorders: No Hx Sexually Transmitted Disorders: No Hx Renal Disease (ESRD): No Hx Thyroid Disease: No Hx Human Immunodeficiency Virus (HIV): No (last 06/02 negative) Hx Hepatitis C: No Hx Depression: No Hx Suicide Attempt: No Hx Bipolar Disorder: No Hx Schizophrenia: No - Patient Surgical History Past Surgical History: No Hx Neurologic Surgery: No Hx Cataract Extraction: No Hx Cardiac Surgery: No Hx Lung Surgery: No Hx Breast Surgery: No Hx Breast Biopsy: No Hx Abdominal Surgery: No Hx Appendectomy: No Hx Cholecystectomy: No Hx Genitourinary Surgery: No Hx Section: No Hx Orthopedic Surgery: No Anesthesia Reaction: No - PPD History Date: 08/08/18 - Smoking Cessation Smoking history: Current every day smoker Have you smoked in the past 12 months: Yes Aproximately how many cigarettes per day: 6 Hx Chewing Tobacco Use: No Initiated information on smoking cessation: No - Substances abused Heroin Substance route: Injection Frequency: Daily Amount used: 20 bags daily Age of first use: 20 Date of last use: 03/19/19 Alprazolam (Xanax) Substance route: Oral Frequency: Daily Amount used: 3 to 5 of 2 mg. Age of first use: 19 Date of last use: 03/19/19 Cocaine Substance route: Injection Frequency: Daily Amount used: 1 bag Age of first use: 19 Date of last use: 03/19/19 Marijuana/Hashish Substance route: Smoking Frequency: Daily Amount used: 10 bags Age of first use: 17 Date of last use: 03/19/19 Alcohol Substance route: Oral Frequency: 3-6 times per week Amount used: 2 to 3 bottles Age of first use: 16 Date of last use: 03/19/19 Admission Physical Exam [facility] - Vital Signs Vital Signs: Vital Signs - 24 hr 03/20/19 00:05 Temperature 98.6 F Pulse Rate 71 Respiratory 16 Rate Blood Pressure 113/67 Cleared for Admission S - Detox or Rehab [facility] Level of Care: Medically Managed Detox Regimen/Protocol: Methadone/Valium Breathalyzer - Breathalyzer Breathalyzer: 0.024 Urine Drug Screen - Test Device Lot number: [id number] Expiration date: 11/11/20 - Control Is test valid?: Yes - Results Drug screen NEGATIVE: No Urine drug screen results: THC-Marijuana, MUMTAZ-Cocaine, FEN-Fentanyl, MTD- Methadone, BZO-Benzodiazepines Inpatient Rehab Admission - Rehab Decision to Admit Inpatient rehab admission?: No
[2019-03-20] MEDS ORDERED: METHADONE HCL 10 MG TABLET (FOR DETOX USE ONLY) PO ONE (02:42)
[2019-03-20] MEDS ORDERED: BISMUTH SUBSALICYLATE 524 MG/30 ML UD PO PRN (02:42)
[2019-03-20] MEDS ORDERED: MELATONIN 5 MG TABLETS PO PRN (02:42)
[2019-03-20] MEDS ORDERED: MAGNESIUM CITRATE 300 ML BOTTLE PO PRN (02:42)
[2019-03-20] MEDS ORDERED: MAGNESIUM HYDROX 2400MG/30ML ORAL SUSPENSION 30 ML CUP PO PRN (02:42)
[2019-03-20] MEDS ORDERED: MAG HYDROX/AL HYDROX/SIMETH 30 ML UNIT-DOSE CUP PO PRN (02:42)
[2019-03-20] MEDS ORDERED: cloNIDine HCL 0.1 MG TABLET PO PRN (02:42)
[2019-03-20] MEDS ORDERED: MENTHOL/PHENOL 1 EACH UD MM PRN (02:42)
[2019-03-20] MEDS ORDERED: ACETAMINOPHEN 325 MG TABLET (FP) PO PRN ×2 (02:42)
[2019-03-20] MEDS ORDERED: IBUPROFEN 400 MG TABLET (FP) PO PRN (02:42)
[2019-03-20] MEDS ORDERED: hydrOXYzine PAMOATE 25 MG CAPSULE (FP) PO PRN (02:42)
[2019-03-20] MEDS ORDERED: ALBUTEROL SO4 8 GM HFA INHALER IH PRN (02:47)
[2019-03-20] MEDS: diazePAM 5 MG TABLET PO PRN ×3 (03:22→17:15)
[2019-03-20] MEDS ORDERED: ALBUTEROL SO4 2.5/IPRATROPIUM 0.5 INH SOL 3 ML VIAL.NEB. NEB ONE (04:06)
[2019-03-20] MEDS: diazePAM 5 MG TABLET PO SCH ×3 (06:02→22:36)
[2019-03-20] MEDS: METHOCARBAMOL 500 MG TABLET PO PRN (10:23)
[2019-03-20] MEDS: PRENATAL VITAMINS W/ FOLIC ACID TABLET (FP) PO SCH (10:23)
--- NOTE | 2019-03-20 10:39 | EKG ---
Test Reason : Blood Pressure : / mmHG Vent. Rate : 059 BPM Atrial Rate : 059 BPM P-R Int : 136 ms QRS Dur : 092 ms QT Int : 448 ms P-R-T Axes : 069 079 066 degrees QTc Int : 443 ms SINUS BRADYCARDIA OTHERWISE NORMAL ECG WHEN COMPARED WITH ECG OF 06-AUG-2018 11:43, NO SIGNIFICANT CHANGE WAS FOUND Confirmed by ALEXSANDRA MARTINEZ, MUSTAPHA ([id number]) on 03/20/2019 10:39:40 AM Referred By: Mike Lunsford Confirmed By:MUSTAPHA UPTON MD
[2019-03-20] MEDS ORDERED: DICYCLOMINE HCL 10 MG CAPSULE PO ONE (15:02)
--- NOTE | 2019-03-20 15:02 | PN ---
[facility] CIWA - CIWA Score Nausea/Vomitin-Mild Nausea/No Vomiting Muscle Tremors: 4-Moderate,w/Arms Extend Anxiety: 3 Agitation: 2 Paroxysmal Sweats: 2 Orientation: 1-Uncertain about Date Tacttile Disturbances: 1-Very Mild Itch/Numbness Auditory Disturbances: 0-None Visual Disturbances: 0-None Headache: 0-None Present CIWA-Ar Total Score: 14 S COWS - Scale Resting Pulse: 1= [place] 81-100 Sweatin= Chills/Flushing Restless Observation: 0= Sits Still Pupil Size: 0= Normal to Room Light Bone or Joint Aches: 1= Mild Discomfort Runny Nose/ Eye Tearin= Nasal Congestion GI Upset > 30mins: 2= Nausea/Diarrhea (no diarrhea) Tremor Observation of Outstretched Hands: 2= Slight Tremor Visible Yawning Observation: 1= 1-2x During Session Anxiety or Irritability: 2=Irritable/Anxious Goose Flesh Skin: 3=Piloerection COWS Score: 14 [facility] Progress Note (SOAP) Subjective: 28 years old male admitted on 03/20/19 for benzo and opiate withdrawal sx management treated with valium and methadone detox regimen nausea gi cramping bentyl 20 mg po x 1 zofran sl 4 mg x 1 pepcid 20 mg po bid smoke 1/2 pack cigarette daily nicotine patch 14 mg + gum 2 mg Objective: 03/20/19 15:04 Vital Signs Temperature 98.1 F 03/20/19 13:24 Pulse Rate 96 H 03/20/19 13:24 Respiratory Rate 16 03/20/19 13:24 Blood Pressure 112/72 03/20/19 13:24 O2 Sat by Pulse Oximetry (%) 03/20/19 15:05 lab pending Assessment: 03/20/19 15:05 benzo and opiate withdrawal sx Plan: continue valium and methadone detox regimen
[2019-03-20] MEDS ORDERED: ONDANSETRON *ODT* 4 MG TABLET SL ONE (15:03)
[2019-03-20] MEDS: FAMOTIDINE 20 MG TABLET PO SCH ×2 (15:49→22:36)
[2019-03-20] MEDS: NICOTINE POLACRILEX 2 MG GUM BUC PRN ×2 (15:50→20:54)
[2019-03-20] MEDS: NICOTINE 14 MG/24 HOURS TOPICAL PATCH TD SCH (15:50)
[2019-03-20] MEDS ORDERED: THIAMINE HCL 100 MG TABLET (FP) PO SCH (22:00)
[2019-03-21] MEDS: diazePAM 5 MG TABLET PO SCH ×2 (05:43→07:05)
[2019-03-21] MEDS ORDERED: METHADONE HCL 10 MG TABLET (FOR DETOX USE ONLY) ONE (08:34)
[2019-03-21] MEDS ORDERED: METHADONE HCL 5 MG TABLET (FOR DETOX USE ONLY) ONE (08:35)
[2019-03-21 09:20] VITALS: BP 107/58; PULSE 70; TEMP 98.7
[2019-03-21 09:41] LABS: HEMATOCRIT 46.3 % (35.4-49); HEMOGLOBIN 15.4 GM/dL (11.7-16.9); MCH 31.1 pg (25.7-33.7); MCHC 33.3 g/dl (32.0-35.9); MEAN CELL VOLUME 93.5 fl (80-96); MEAN PLT VOLUME 8.6 fl (7.5-11.1); PLATELET COUNT 260 K/MM3 (134-434); RBC 4.96 M/mm3 (4.00-5.60); RDW 12.8 % (11.9-15.9); WHITE BLOOD COUNT 8.5 K/mm3 (4.0-10.0)
[2019-03-21] MEDS ORDERED: METHADONE (DETOX) 20 MG, METHADONE (DETOX) 5 MG PO ONE (10:00)
[2019-03-21 10:13] LABS: ALBUMIN 3.4 g/dl (3.4-5.0); BILIRUBIN,TOTAL 0.3 mg/dL (0.2-1); BLOOD UREA NITROGEN 6.5 mg/dL (7-18); CREATININE 0.8 mg/dL (0.55-1.3); POTASSIUM 4.5 mmol/L (3.5-5.1); TOT PROT 6.2 g/dl (6.4-8.2)
[2019-03-21] MEDS: PRENATAL VITAMINS W/ FOLIC ACID TABLET (FP) PO SCH (10:32)
[2019-03-21] MEDS: diazePAM 5 MG TABLET PO PRN (10:32)
[2019-03-21] MEDS: NICOTINE 14 MG/24 HOURS TOPICAL PATCH TD SCH (10:32)
[2019-03-21] MEDS: FAMOTIDINE 20 MG TABLET PO SCH (10:32)
--- NOTE | 2019-03-21 10:32 | PN ---
[facility] CIWA - CIWA Score Nausea/Vomitin-Mild Nausea/No Vomiting Muscle Tremors: 2 Anxiety: 3 Agitation: 2 Paroxysmal Sweats: 2 Orientation: 1-Uncertain about Date Tacttile Disturbances: 0-None Auditory Disturbances: 0-None Visual Disturbances: 0-None Headache: 0-None Present CIWA-Ar Total Score: 11 S COWS - Scale Resting Pulse: 0= [place] 80 or Below Sweatin= Chills/Flushing Restless Observation: 0= Sits Still Pupil Size: 0= Normal to Room Light Bone or Joint Aches: 2= Severe Diffuse Aches Runny Nose/ Eye Tearin= Nasal Congestion GI Upset > 30mins: 2= Nausea/Diarrhea (no diarrhea) Tremor Observation of Outstretched Hands: 2= Slight Tremor Visible Yawning Observation: 1= 1-2x During Session Anxiety or Irritability: 2=Irritable/Anxious Goose Flesh Skin: 0=Smooth Skin COWS Score: [address] [facility] Progress Note (SOAP) Subjective: 28 years old male admitted on 03/20/19 for benzo and opiate withdrawal sx management treated with valium and methadone detox regimen patient tolerated well feeling better ate breakfast resting on bed prefers to stay in bed sleeping today limited conversation with staff Objective: 03/21/19 10:32 Vital Signs Temperature 98.7 F 03/21/19 09:20 Pulse Rate 70 03/21/19 09:20 Respiratory Rate 18 03/21/19 09:20 Blood Pressure 107/58 L 03/21/19 09:20 O2 Sat by Pulse Oximetry (%) Laboratory Last Values WBC 8.5 K/mm3 (4.0-10.0) 03/21/19 08:00 RBC 4.96 M/mm3 (4.00-5.60) 03/21/19 08:00 Hgb 15.4 GM/dL (11.7-16.9) 03/21/19 08:00 Hct 46.3 % (35.4-49) 03/21/19 08:00 MCV 93.5 fl (80-96) 03/21/19 08:00 MCH 31.1 pg (25.7-33.7) 03/21/19 08:00 MCHC 33.3 g/dl (32.0-35.9) 03/21/19 08:00 RDW 12.8 % (11.9-15.9) 03/21/19 08:00 Plt Count 260 K/MM3 (134-434) D 03/21/19 08:00 MPV 8.6 fl (7.5-11.1) D 03/21/19 08:00 Sodium 139 mmol/L (136-145) 03/21/19 08:00 Potassium 4.5 mmol/L (3.5-5.1) 03/21/19 08:00 Chloride 103 mmol/L (98-107) 03/21/19 08:00 Carbon Dioxide 31 mmol/L (21-32) 03/21/19 08:00 Anion Gap 5 MMOL/L (8-16) L 03/21/19 08:00 BUN 6.5 mg/dL (7-18) L 03/21/19 08:00 Creatinine 0.8 mg/dL (0.55-1.3) 03/21/19 08:00 Est GFR (CKD-EPI)AfAm 140.90 03/21/19 08:00 Est GFR (CKD-EPI)NonAf 121.57 03/21/19 08:00 Random Glucose 90 mg/dL (74-106) 03/21/19 08:00 Calcium 9.0 mg/dL (8.5-10.1) 03/21/19 08:00 Total Bilirubin 0.3 mg/dL (0.2-1) 03/21/19 08:00 AST 84 U/L (15-37) H 03/21/19 08:00 ALT 117 U/L (13-61) H 03/21/19 08:00 Alkaline Phosphatase 95 U/L (45-117) 03/21/19 08:00 Total Protein 6.2 g/dl (6.4-8.2) L 03/21/19 08:00 Albumin 3.4 g/dl (3.4-5.0) 03/21/19 08:00 lab noted Assessment: 03/21/19 10:32 benzo and opiate withdrawal sx Plan: continue valium and methadone detox regimen
[2019-03-21] MEDS: METHOCARBAMOL 500 MG TABLET PO PRN (10:34)
[2019-03-22] MEDS ORDERED: diazePAM 5 MG TABLET PO ONE (06:00)
[2019-03-22] MEDS ORDERED: METHADONE HCL 10 MG TABLET (FOR DETOX USE ONLY) PO ONE (10:00)
[2019-03-23] MEDS ORDERED: METHADONE (DETOX) 10 MG, METHADONE (DETOX) 5 MG PO ONE (10:00)
[2019-03-24] MEDS ORDERED: METHADONE HCL 10 MG TABLET (FOR DETOX USE ONLY) PO ONE (10:00)
--- NOTE | 2019-03-24 15:43 | DS ---
[facility] Detox Discharge Summary Admission Date: 03/20/19 Discharge Date: 03/21/19 - History Present History: Opioid Dependence, Sedative Dependence Additional Comments: 28 years old male admitted on 03/20/19 for benzo and opiate withdrawal sx management treated with valium and methadone detox regimen insists to leave the detox unit that his sister is willing to take him in patient is alert oriented x 3 speech clearly coherently refuses ciwa cows refuses discharge physical examination - Physical Exam Results Vital Signs: Vital Signs Temperature 98.7 F 03/21/19 09:20 Pulse Rate 70 03/21/19 09:20 Respiratory Rate 18 03/21/19 09:20 Blood Pressure 107/58 L 03/21/19 09:20 O2 Sat by Pulse Oximetry (%) Pertinent Admission Physical Exam Findings: benzo and opiate withdrawal sx Laboratory Last Values WBC 8.5 K/mm3 (4.0-10.0) 03/21/19 08:00 RBC 4.96 M/mm3 (4.00-5.60) 03/21/19 08:00 Hgb 15.4 GM/dL (11.7-16.9) 03/21/19 08:00 Hct 46.3 % (35.4-49) 03/21/19 08:00 MCV 93.5 fl (80-96) 03/21/19 08:00 MCH 31.1 pg (25.7-33.7) 03/21/19 08:00 MCHC 33.3 g/dl (32.0-35.9) 03/21/19 08:00 RDW 12.8 % (11.9-15.9) 03/21/19 08:00 Plt Count 260 K/MM3 (134-434) D 03/21/19 08:00 MPV 8.6 fl (7.5-11.1) D 03/21/19 08:00 Sodium 139 mmol/L (136-145) 03/21/19 08:00 Potassium 4.5 mmol/L (3.5-5.1) 03/21/19 08:00 Chloride 103 mmol/L (98-107) 03/21/19 08:00 Carbon Dioxide 31 mmol/L (21-32) 03/21/19 08:00 Anion Gap 5 MMOL/L (8-16) L 03/21/19 08:00 BUN 6.5 mg/dL (7-18) L 03/21/19 08:00 Creatinine 0.8 mg/dL (0.55-1.3) 03/21/19 08:00 Est GFR (CKD-EPI)AfAm 140.90 03/21/19 08:00 Est GFR (CKD-EPI)NonAf 121.57 03/21/19 08:00 Random Glucose 90 mg/dL (74-106) 03/21/19 08:00 Calcium 9.0 mg/dL (8.5-10.1) 03/21/19 08:00 Total Bilirubin 0.3 mg/dL (0.2-1) 03/21/19 08:00 AST 84 U/L (15-37) H 03/21/19 08:00 ALT 117 U/L (13-61) H 03/21/19 08:00 Alkaline Phosphatase 95 U/L (45-117) 03/21/19 08:00 Total Protein 6.2 g/dl (6.4-8.2) L 03/21/19 08:00 Albumin 3.4 g/dl (3.4-5.0) 03/21/19 08:00 RPR Titer Nonreactive (NONREACTIVE) 03/21/19 08:00 lab noted - Treatment Hospital Course: Detox Protocol Followed, Responded well Patient has Accepted a Rehab Referral to: community support approach - Medication Discharge Medications: Ambulatory Orders Albuterol Sulfate Inhaler - [Ventolin HFA Inhaler -] 2 inhaler PO Q4HWA PRN 10/31 - Diagnosis (1) Sedative, hypnotic or anxiolytic dependence, uncomplicated Status: Acute (2) Nicotine dependence Status: Acute Qualifiers: Nicotine product type: cigarettes Substance use status: in withdrawal Qualified Code(s): F17.213 - Nicotine dependence, cigarettes, with withdrawal (3) Opioid dependence with withdrawal Status: Acute (4) Weight loss Status: Acute (5) Asthma Status: Chronic Qualifiers: Asthma severity: mild Asthma persistence: intermittent Asthma complication type: uncomplicated Qualified Code(s): J45.20 - Mild intermittent asthma, uncomplicated - AMA Did Patient Leave Against Medical Advice: Yes
[2019-03-25] MEDS ORDERED: METHADONE HCL 5 MG TABLET (FOR DETOX USE ONLY) PO ONE (06:00)
== END 2019-03-21 13:24 | disposition left against medical advice (07) | DRG 770 ==
LOC: YASAS 19:19 → Y3N 03-20 02:54
PROVIDERS: ADMIT Allergy & Immunology; ATTEND Allergy & Immunology
PROC: HZ2ZZZZ Detoxification Services for Substance Abuse Treatment (ICD-10-PCS; principal; 2019-03-20)
DX: F11.23 Opioid dependence with withdrawal (principal); F13.230 Sedative, hypnotic or anxiolytic dependence with withdrawal, uncomplicated; F10.10 Alcohol abuse, uncomplicated; F14.20 Cocaine dependence, uncomplicated; F12.20 Cannabis dependence, uncomplicated; F17.210 Nicotine dependence, cigarettes, uncomplicated; J45.909 Unspecified asthma, uncomplicated
CPT/HCPCS: 36415; 80053; 85027; 86593; 93005; 93010; Q0162

== ENCOUNTER 2019-05-02 19:14 | Inpatient (IN) | payer OTHER ==
[2019-05-02 19:33] VITALS: BMI 19.7
--- NOTE | 2019-05-02 20:55 | HP ---
COWS - Scale Resting Pulse: 0= ID 80 or Below Sweatin=Flushed/Facial Moisture Restless Observation: 0= Sits Still Pupil Size: 0= Normal to Room Light Bone or Joint Aches: 4=Acute Joint/Muscle Pain Runny Nose/ Eye Tearin= Runny Nose/Eyes GI Upset > 30mins: 1= Stomach Cramp Tremor Observation: 1= Tremor [place], Not Seen Yawning Observation: 4= Several Times/Minute Anxiety or Irritability: 2=Irritable/Anxious Goose Flesh Skin: 3=Piloerection COWS Score: 19 CIWA Score Nausea/Vomitin-No Nausea/No Vomiting Muscle Tremors: 1-None Visible, but [place] Anxiety: 4-Mod. Anxious/Guarded Agitation: 1-Slight > Activity Paroxysmal Sweats: 3 Orientation: 1-Uncertain about Date Tacttile Disturbances: 0-None Auditory Disturbances: 1-Very Mild Visual Disturbances: 0-None Headache: 3-Moderate CIWA-Ar Total Score: 14 - Admission Criteria [facility]ASAS Guidelines: Admission for Medically Managed Detox: Requires at least one of the followin. CIWA greater than 12 2. Seizures within the past 24 hours 3. Delirium tremens within the past 24 hours 4. Hallucinations within the past 24 hours 5. Acute intervention needed for co occurring medical disorder 6. Acute intervention needed for co occurring psychiatric disorder 7. Severe withdrawal that cannot be handled at a lower level of care (continued vomiting, continued diarrhea, abnormal vital signs) requiring intravenous medication and/or fluids 8. Patient presents the following: CIWA greater than 12 Admission Criteria Met: Admission criteria met Admitting History and Physical - Smoking History Smoking history: Current every day smoker Have you smoked in the past 12 months: Yes Aproximately how many cigarettes per day: 6 - Alcohol/Substance Use Hx Alcohol Use: No Admission ROS BHS - HPI Chief Complaint: seeking detox from heroin and benzo-xanax Allergies/Adverse Reactions: Allergies Allergy/AdvReac Type Severity Reaction Status Date / Time No Known Allergies Allergy Verified 05/02/19 19:21 History of Present Illness: HERE FOR HEROINE/ XANAX DEPENDENCE. CLIENT IS SELF REFERRED. KNOWN TO PROGRAM. [facility] LAST ADMISSION. 03/21/2019. CLIENT REPORTS HE HAS NO PERSONAL ISSUES THIS TIME INTERFERING HIS COMPLETION. HE PRESENTS WITH C/O WITHDRAWAL SX'S. DAILY USE OF BOTH SUBSTANCES IS REPORTED. LAST USED HEROIN THIS MORNING AND XANAX 1 DAY AGO. +IVDU. DENIES HX/O BLACK OUTS, SEIZURES, AVH. LONGEST CLEAN TIME 2 YEARS RELAPSING 11 MONTHS AGO. DENIES CLEAN TIME SINCE. LIVES WITH MOTHER, UNEMPLOYED, DENIES LEGALS Exam Limitations: No Limitations - Ebola screening Have you traveled outside of the country in the last 21 days: No (N) Have you had contact with anyone from an Ebola affected area: No Do you have a fever: No - Review of Systems Constitutional: Chills, Loss of Appetite, Malaise, Night Sweats, Changes in sleep, Unintentional Wgt. Loss EENT: reports: Nose Congestion (WITH RUNNY NOSE) Respiratory: reports: No Symptoms reported Cardiac: reports: No Symptoms Reported GI: reports: Constipated, Nausea, Poor Appetite, Poor Fluid Intake, Abdominal cramping : reports: No Symptoms Reported Musculoskeletal: reports: Other (RESTLESS LEGS) Integumentary: reports: Sweating Neuro: reports: Headache, Tremors Endocrine: reports: No Symptoms Reported Hematology: reports: No Symptoms Reported Psychiatric: reports: Orientated x3, Anxious, Depressed (DENIES SI) Other Systems: Reviewed and Negative Patient History - Patient Medical History Hx Anemia: No Hx Asthma: Yes (on albutrol inhaler and nebulizer) Hx Chronic Obstructive Pulmonary Disease (COPD): No Hx Cancer: No Hx Cardiac Disorders: No Hx Congestive Heart Failure: No Hx Hypertension: No Hx Hypercholesterolemia: No Hx Pacemaker: No HX Cerebrovascular Accident: No Hx Seizures: No Hx Dementia: No Hx Diabetes: No Hx Gastrointestinal Disorders: No Hx Liver Disease: No Hx Genitourinary Disorders: No Hx Sexually Transmitted Disorders: No Hx Renal Disease (ESRD): No Hx Thyroid Disease: No Hx Human Immunodeficiency Virus (HIV): No Hx Hepatitis C: No Hx Depression: No Hx Suicide Attempt: No Hx Bipolar Disorder: No Hx Schizophrenia: No Other Medical History: DENIES - Patient Surgical History Past Surgical History: No Hx Neurologic Surgery: No Hx Cataract Extraction: No Hx Cardiac Surgery: No Hx Lung Surgery: No Hx Breast Surgery: No Hx Breast Biopsy: No Hx Abdominal Surgery: No Hx Appendectomy: No Hx Cholecystectomy: No Hx Genitourinary Surgery: No Hx Section: No Hx Orthopedic Surgery: No Anesthesia Reaction: No - PPD History Previous Implant?: Yes Documented Results: Negative w/proof Implanted On Prior R Admission?: Yes Date: 08/08/18 Results: 0MM PPD to be Administered?: No - Smoking Cessation Smoking history: Current every day smoker Have you smoked in the past 12 months: Yes Aproximately how many cigarettes per day: 10 Cigars Per Day: 0 Hx Chewing Tobacco Use: No Initiated information on smoking cessation: Yes 'Breaking Loose' booklet given: 05/02/19 - Substance & Tx. History Hx Alcohol Use: Yes Hx Substance Use: Yes Substance Use Type: Alcohol, Cocaine, Heroin, Opiates, Tranquilizers (XANAX) Hx Substance Use Treatment: Yes ([facility]) - Substances abused Heroin Substance route: Injection Frequency: Daily Amount used: 20 bags daily Age of first use: 20 Date of last use: 05/02/19 Alprazolam (Xanax) Substance route: Oral Frequency: Daily Amount used: 3 to 5 of 2 mg. Age of first use: 19 Date of last use: 05/01/19 Cocaine Substance route: Injection Frequency: Daily Amount used: 1 bag Age of first use: 19 Date of last use: 05/01/19 Marijuana/Hashish Substance route: Smoking Frequency: Daily Amount used: 9 BLUNTS Age of first use: 17 Date of last use: 05/02/19 Alcohol Substance route: Oral Frequency: 3-6 times per week (3 WK) Amount used: 40 OZ Age of first use: 16 Date of last use: 04/30/19 Admission Physical Exam BHS - Vital Signs Vital Signs: Vital Signs - 24 hr 05/02/19 19:19 Temperature 99.8 F H Pulse Rate 71 Respiratory 16 Rate Blood Pressure 118/72 - Physical General Appearance: Yes: Moderate Distress, Tremorous (felt), Anxious, Other ( frail) HEENTM: Yes: EOMI, Normocephalic, Normal Voice, MARY, Pharynx Normal, Rhinorrhea , Other (stained color teeth) Respiratory: Yes: Chest Non-Tender, Lungs Clear, Normal Breath Sounds, No Respiratory Distress, No Accessory Muscle Use Neck: Yes: No masses,lesions,Nodules, Supple, Trachea in good position, Other ( track lindo) Breast: Yes: Breasts Symetrical Cardiology: Yes: Regular Rhythm, Regular Rate, S1, S2 Abdominal: Yes: Non Tender, Soft, Increased Bowel Sounds Genitourinary: Yes: Within Normal Limits Back: Yes: Normal Inspection Musculoskeletal: Yes: full range of Motion, Gait Steady Extremities: Yes: Normal Capillary Refill, Normal Range of Motion, Non-Tender, Tremors (felt) Neurological: Yes: Fully Oriented, Alert, Motor Strength 5/5, Depressed Affect ( decliens psych services,denies si) Integumentary: Yes: Cold (cool), Track [place], Other (pilorection) Lymphatic: Yes: Within Normal Limits - Diagnostic (1) Cannabis dependence, uncomplicated Current Visit: Yes Status: Acute (2) Alcohol abuse Current Visit: Yes Status: Acute (3) Depressed affect Current Visit: Yes Status: Acute (4) Cocaine dependence Current Visit: Yes Status: Acute Qualifiers: Substance use status: uncomplicated Qualified Code(s): F14.20 - Cocaine dependence, uncomplicated (5) Nicotine dependence Current Visit: Yes Status: Chronic Qualifiers: Nicotine product type: cigarettes (6) Opioid dependence with withdrawal Current Visit: Yes Status: Acute (7) Sedative, hypnotic or anxiolytic dependence, uncomplicated Current Visit: Yes Status: Acute (8) Weight loss Current Visit: Yes Status: Acute (9) Asthma Current Visit: Yes Status: Chronic Qualifiers: Asthma severity: mild Asthma persistence: intermittent Asthma complication type: uncomplicated Qualified Code(s): J45.20 - Mild intermittent asthma, uncomplicated (10) IVDU (intravenous drug user) Current Visit: Yes Status: Acute (11) Constipation Current Visit: Yes Status: Acute Qualifiers: Constipation type: drug induced constipation Qualified Code(s): K59.03 - Drug induced constipation Cleared for Admission S - Detox or Rehab [facility] Level of Care: Medically Managed Detox Regimen/Protocol: Methadone/Valium Claeared for Rehab Admission: No Breathalyzer - Breathalyzer Breathalyzer: 0.008 Urine Drug Screen - Test Device Lot number: [id number] Expiration date: 12/11/20 - Control Is test valid?: Yes - Results Drug screen NEGATIVE: No Urine drug screen results: THC-Marijuana, MUMTAZ-Cocaine, FEN-Fentanyl, BZO- Benzodiazepines Inpatient Rehab Admission - Rehab Decision to Admit Inpatient rehab admission?: No
[2019-05-02] MEDS ORDERED: ALBUTEROL SO4 8 GM HFA INHALER IH PRN (21:07)
[2019-05-02] MEDS ORDERED: ONDANSETRON *ODT* 4 MG TABLET SL PRN (21:08)
[2019-05-02] MEDS ORDERED: NALOXONE HCL 0.4 MG/ML VIAL IM PRN (21:08)
[2019-05-02] MEDS ORDERED: MENTHOL/PHENOL 1 EACH UD MM PRN (21:08)
[2019-05-02] MEDS ORDERED: DICYCLOMINE HCL 10 MG CAPSULE PO PRN (21:08)
[2019-05-02] MEDS ORDERED: IBUPROFEN 400 MG TABLET (FP) PO PRN (21:08)
[2019-05-02] MEDS ORDERED: P-EPHED 60MG/TRIPROLIDI 2.5MG TABLET PO PRN (21:08)
[2019-05-02] MEDS ORDERED: BISMUTH SUBSALICYLATE 524 MG/30 ML UD PO PRN (21:08)
[2019-05-02] MEDS ORDERED: METHOCARBAMOL 500 MG TABLET PO PRN (21:08)
[2019-05-02] MEDS ORDERED: diazePAM 5 MG TABLET PO PRN (21:08)
[2019-05-02] MEDS ORDERED: MAGNESIUM CITRATE 300 ML BOTTLE PO PRN (21:08)
[2019-05-02] MEDS ORDERED: cloNIDine HCL 0.1 MG TABLET PO PRN (21:08)
[2019-05-02] MEDS ORDERED: guaiFENesin 200 MG/10 ML 10 ML UNIT-DOSE CUPS PO PRN (21:08)
[2019-05-02] MEDS ORDERED: hydrOXYzine PAMOATE 25 MG CAPSULE (FP) PO PRN (21:08)
[2019-05-02] MEDS ORDERED: MAGNESIUM HYDROX 2400MG/30ML ORAL SUSPENSION 30 ML CUP PO PRN (21:08)
[2019-05-02] MEDS ORDERED: MAG HYDROX/AL HYDROX/SIMETH 30 ML UNIT-DOSE CUP PO PRN (21:08)
[2019-05-02] MEDS ORDERED: NICOTINE POLACRILEX 2 MG GUM BUC PRN (21:08)
[2019-05-02] MEDS ORDERED: METHADONE HCL 10 MG TABLET (FOR DETOX USE ONLY) PO ONE (21:08)
[2019-05-02] MEDS ORDERED: ACETAMINOPHEN 325 MG TABLET (FP) PO PRN ×2 (21:08)
[2019-05-02] MEDS ORDERED: MELATONIN 5 MG TABLETS PO PRN (21:08)
[2019-05-02] MEDS: DOCUSATE SODIUM 100 MG CAPSULE (FP) PO SCH (21:51)
[2019-05-02] MEDS: diazePAM 5 MG TABLET PO SCH (21:51)
[2019-05-02] MEDS ORDERED: THIAMINE HCL 100 MG TABLET (FP) PO SCH (22:00)
[2019-05-03] MEDS: diazePAM 5 MG TABLET PO SCH (05:41)
[2019-05-03] MEDS ORDERED: METHADONE HCL 5 MG TABLET (FOR DETOX USE ONLY) ONE (08:42)
[2019-05-03] MEDS ORDERED: METHADONE HCL 10 MG TABLET (FOR DETOX USE ONLY) ONE (08:42)
[2019-05-03 09:53] VITALS: BP 112/74; PULSE 65; TEMP 97.9
[2019-05-03] MEDS ORDERED: NICOTINE 14 MG/24 HOURS TOPICAL PATCH TD SCH (10:00)
[2019-05-03] MEDS ORDERED: METHADONE (DETOX) 20 MG, METHADONE (DETOX) 5 MG PO ONE (10:00)
[2019-05-03] MEDS ORDERED: PRENATAL VITAMINS W/ FOLIC ACID TABLET (FP) PO SCH (10:00)
[2019-05-03] MEDS: DOCUSATE SODIUM 100 MG CAPSULE (FP) PO SCH (10:20)
[2019-05-03 10:30] LABS: HEMATOCRIT 47.6 % (35.4-49); HEMOGLOBIN 15.8 GM/dL (11.7-16.9); MCH 30.9 pg (25.7-33.7); MCHC 33.2 g/dl (32.0-35.9); MEAN CELL VOLUME 92.9 fl (80-96); PLATELET COUNT 385 K/MM3 (134-434); RBC 5.13 M/mm3 (4.00-5.60); RDW 13.3 % (11.9-15.9); WHITE BLOOD COUNT 8.9 K/mm3 (4.0-10.0)
[2019-05-03 10:38] LABS: ALBUMIN 4.4 g/dl (3.4-5.0); BILIRUBIN,TOTAL 0.5 mg/dL (0.2-1); BLOOD UREA NITROGEN 7.6 mg/dL (7-18); CALCIUM 10.1 mg/dL (8.5-10.1); CREATININE 0.8 mg/dL (0.55-1.3); POTASSIUM 4.9 mmol/L (3.5-5.1); TOT PROT 8.1 g/dl (6.4-8.2)
--- NOTE | 2019-05-03 13:40 | PN ---
S Progress Note Note: pt did not want to stay. Pt was asked to stay to complete his detox and give it a chance. Pt was advised of the risks of relapse, seizures, OD, DT and or loss, pt chose to sign out AMA.
--- NOTE | 2019-05-03 13:40 | DS ---
[facility] Detox Discharge Summary Admission Date: 05/02/19 - History Present History: Alcohol Dependence, Cannabis Dependence, Cocaine Dependence, Opioid Dependence, Sedative Dependence - Physical Exam Results Vital Signs: Vital Signs Temperature 97.9 F 05/03/19 09:51 Pulse Rate 65 05/03/19 09:51 Respiratory Rate 18 05/03/19 09:51 Blood Pressure 112/74 05/03/19 09:51 O2 Sat by Pulse Oximetry (%) - Treatment Hospital Course: Rehab Referral Accepted - Medication Discharge Medications: Ambulatory Orders Albuterol Sulfate Inhaler - [Ventolin HFA Inhaler -] 2 inhaler PO Q4HWA PRN 10/31 - Diagnosis (1) Alcohol abuse Status: Acute (2) Cannabis dependence, uncomplicated Status: Acute (3) Cocaine dependence Status: Acute Qualifiers: Substance use status: uncomplicated Qualified Code(s): F14.20 - Cocaine dependence, uncomplicated (4) Constipation Status: Acute Qualifiers: Constipation type: drug induced constipation Qualified Code(s): K59.03 - Drug induced constipation (5) Depressed affect Status: Acute (6) IVDU (intravenous drug user) Status: Acute (7) Opioid dependence with withdrawal Status: Acute (8) Sedative, hypnotic or anxiolytic dependence, uncomplicated Status: Acute (9) Weight loss Status: Acute (10) Asthma Status: Chronic Qualifiers: Asthma severity: mild Asthma persistence: intermittent Asthma complication type: uncomplicated Qualified Code(s): J45.20 - Mild intermittent asthma, uncomplicated (11) Nicotine dependence Status: Chronic Qualifiers: Nicotine product type: cigarettes - AMA Did Patient Leave Against Medical Advice: Yes
[2019-05-04] MEDS ORDERED: diazePAM 5 MG TABLET PO SCH (06:00)
[2019-05-04] MEDS ORDERED: METHADONE HCL 10 MG TABLET (FOR DETOX USE ONLY) PO ONE (10:00)
[2019-05-05] MEDS ORDERED: diazePAM 5 MG TABLET PO ONE (06:00)
[2019-05-05] MEDS ORDERED: METHADONE (DETOX) 10 MG, METHADONE (DETOX) 5 MG PO ONE (10:00)
[2019-05-06] MEDS ORDERED: METHADONE HCL 10 MG TABLET (FOR DETOX USE ONLY) PO ONE (10:00)
[2019-05-07] MEDS ORDERED: METHADONE HCL 5 MG TABLET (FOR DETOX USE ONLY) PO ONE (06:00)
== END 2019-05-03 12:20 | disposition left against medical advice (07) | DRG 770 ==
LOC: YASAS 19:14 → Y6N 21:14
PROVIDERS: ADMIT Allergy & Immunology; ATTEND Allergy & Immunology
PROC: HZ2ZZZZ Detoxification Services for Substance Abuse Treatment (ICD-10-PCS; principal; 2019-05-02)
DX: F11.23 Opioid dependence with withdrawal (principal); F13.20 Sedative, hypnotic or anxiolytic dependence, uncomplicated; F14.20 Cocaine dependence, uncomplicated; F12.20 Cannabis dependence, uncomplicated; F10.10 Alcohol abuse, uncomplicated; F17.210 Nicotine dependence, cigarettes, uncomplicated; F32.9 Major depressive disorder, single episode, unspecified; J45.909 Unspecified asthma, uncomplicated; R63.4 Abnormal weight loss; Z56.0 Unemployment, unspecified
CPT/HCPCS: 36415; 80053; 85027; 86593